=== PATIENT | female | born 1960 | race Caucasian/White ===

== ENCOUNTER 2020-02-27 11:29 | Outpatient (CLI) | payer BC ==
--- NOTE | 2020-02-27 12:34 | MMO ---
Bilateral MAMMO Bilat Screen [facility]. CLINICAL HISTORY: Patient is 59 years old and is seen for screening. The patient has no family history of breast cancer. The patient has no personal history of cancer. The patient has a history of bilateral Implants in 2006 - replaced both implants and bilateral Implants in 1991 - silicone gel. VIEWS: The views performed were: bilateral craniocaudal with tomosynthesis; bilateral mediolateral oblique with tomosynthesis; and bilateral Implant displaced with tomosynthesis. FILMS COMPARED: The present examination has been compared to prior imaging studies performed at [facility] on 10/19/1998 and 07/16/2003. This study has been interpreted with the assistance of computer-aided detection. MAMMOGRAM FINDINGS: There are scattered fibroglandular densities. There are no suspicious masses, suspicious calcifications, or new areas of architectural distortion. IMPRESSION: THERE IS NO MAMMOGRAPHIC EVIDENCE OF MALIGNANCY. A ROUTINE FOLLOW-UP MAMMOGRAM IN 1 YEAR IS RECOMMENDED. THE RESULTS OF THIS EXAM WERE SENT TO THE PATIENT. ACR BI-RADS Category 1 - Negative MAMMOGRAPHY NOTE: 1. A negative mammogram report should not delay a biopsy if a dominant of clinically suspicious mass is present. 2. Approximately 10% to 15% of breast cancers are not detected by mammography. 3. Adenosis and dense breasts may obscure an underlying neoplasm. Reported by: KATE MCKEON MD Electonically Signed: [id number]
== END 2020-02-27 11:30 | disposition home or self-care (01) ==
LOC: BICMAMMO 11:29
DX: Z12.31 Encounter for screening mammogram for malignant neoplasm of breast (principal); Z98.82 Breast implant status
CPT/HCPCS: 77063; 77067

== ENCOUNTER 2021-02-10 | Outpatient (CLI) | payer BC | END 2021-02-10 06:56 | disposition home or self-care (01) | DX: M47.26 Other spondylosis with radiculopathy, lumbar region (principal) ==

== ENCOUNTER 2021-03-22 14:05 | Outpatient (CLI) | payer BC | END 2021-03-22 14:06 | disposition home or self-care (01) | LOC: BICMAMMO 14:05 | DX: Z12.31 Encounter for screening mammogram for malignant neoplasm of breast (principal); Z98.82 Breast implant status | CPT/HCPCS: 77063; 77067 ==

== ENCOUNTER 2021-07-06 13:52 | Outpatient (CLI) | payer BC ==
[2021-07-06 14:55] LABS: Bilirubin Neg (Negative); Blood, Urine Negative (Negative); Clarity Clear (Clear); Glucose, Urine (Dipstick) Normal (Negative); Ketone, Urine Negative (Negative); Leukocyte Negative (Negative); Nitrite Negative (Negative); Protein, Urine (Dipstick) Negative (Neg-Trace); Specific Gravity, Urine 1.005 (1.002-1.036); Urobilinogen Normal mg/dL (Less than 2)
[2021-07-06 15:07] LABS: #Basophils 0.1 10x3/uL (0.0-0.2); #Eosinphils 0.2 10x3/uL (0.0-0.5); #Monocytes 0.4 10x3/uL (0.0-1.1); #Neutrophils 2.9 10x3/uL (1.5-8.4); %Basophils 1.1 % (0.0-2.0); %Eosinophils 4.4 % (0.0-6.0); %Lymphocytes 31.6 % (18.0-47.0); %Monocytes 7.5 % (0.0-10.0); %Neutrophils 55.2 % (40.0-75.0); Hemoglobin 13.8 g/dL (12.0-15.5); Mean Corpuscular HGB CONC 32.3 g/dL (32.0-36.0); Mean Corpuscular Volume 99.1 fl (81.6-98.3); Mean Platelet Volume 10.9 fl (7.4-10.4); Platelet Count 257 10x3/uL (150-450); Red Blood Cell (RBC) Count 4.31 10x6/uL (3.90-5.03); White Blood Cell (WBC) Count 5.2 10x3/uL (3.5-10.5)
[2021-07-06 15:15] LABS: INR-International Normal Ratio 0.9; Prothrombin Time 10.3 sec (9.5-12.1)
[2021-07-06 15:17] LABS: Anion Gap 12 mmol/L (10-20); BUN (Urea Nitrogen) 16 mg/dL (9.8-20.1); Calc. Creatinine Clearance 0 mL/min (70-130); Calcium 9.1 mg/dL (7.8-10.44); Carbon Dioxide 25 mmol/L (22-29); Chloride 108 mmol/L (98-107); Glucose 85 mg/dL (70-105); Potassium 4.3 mmol/L (3.5-5.1); Sodium 141 mmol/L (136-145)
[2021-07-07 13:39] LABS: SARS-CoV-2 PCR by NAA Not Detected (NotDetected)
== END 2021-07-06 13:53 | disposition home or self-care (01) ==
LOC: LABBT 13:52
PROVIDERS: ATTEND Orthopaedic Surgery
DX: Z01.818 Encounter for other preprocedural examination (principal); M17.11 Unilateral primary osteoarthritis, right knee; Z20.822 Contact with and (suspected) exposure to COVID-19
CPT/HCPCS: 80048; 81003; 85025; 85610; 87081; 93005; 93010; U0003; U0005

== ENCOUNTER 2021-07-06 14:00 | Inpatient (IN) | payer BC ==
[2021-07-05 11:23] VITALS: BMI 20.5
[2021-07-11] MEDS ORDERED: Tranexamic Acid 1,000 MG/10 ML VIAL ONE (06:07)
[2021-07-11] MEDS ORDERED: Sodium Chloride 0.9% 100 ML ONE (06:07)
[2021-07-11] MEDS ORDERED: ceFAZolin 2 GM/DEX 5% 100 ML BAG ONE ×2 (06:08→15:28)
[2021-07-11] MEDS ORDERED: Vancomycin 1 GM/200 ML BAG ONE (06:08)
[2021-07-11] MEDS ORDERED: Bupivacaine PF 0.5% 30 ML VIAL ONE (06:29)
[2021-07-11] MEDS ORDERED: Acetaminophen 325 MG TAB PO PRN (06:51)
[2021-07-11] MEDS ORDERED: Fentanyl 100 MCG/2 ML VIAL SLOW IVP PRN (06:51)
[2021-07-11] MEDS ORDERED: Promethazine HCl 25 MG/ML VIAL IM PRN ×2 (06:51→10:45)
[2021-07-11] MEDS ORDERED: HYDROcodone/Acetaminophen 10/325 mg Tablet PO PRN ×2 (06:51)
[2021-07-11] MEDS ORDERED: Ondansetron PF 4 MG/2 ML Vial IVP PRN ×2 (06:51→10:45)
[2021-07-11] MEDS ORDERED: diphenhydrAMINE 25 MG CAP PO PRN ×2 (06:51→10:45)
[2021-07-11] MEDS ORDERED: Zolpidem Tartrate 5 MG TAB PO PRN (06:51)
[2021-07-11] MEDS ORDERED: BUPRENORPHINE 15 MCG TOP SCH ×2 (07:00→09:00)
[2021-07-11] MEDS ORDERED: Fentanyl 100 MCG/2 ML VIAL ONE ×7 (07:17→18:55)
[2021-07-11] MEDS ORDERED: Ketorolac Tromethamine 30 MG/ML VIAL ONE ×2 (07:19→15:28)
[2021-07-11] MEDS ORDERED: Dexamethasone 20 MG/5 ML VIAL ONE (07:19)
[2021-07-11] MEDS ORDERED: PROPOFOL 200 MG/20 ML VIAL ONE (07:19)
[2021-07-11] MEDS ORDERED: PHENYLEPHRINE-NS 100 MCG/ML 10 ML SYRINGE ONE (07:19)
[2021-07-11] MEDS ORDERED: Lidocaine 1.5% w/Epi 1:200K 30 ML VIAL (Epid Use) ONE (07:19)
[2021-07-11] MEDS ORDERED: Ondansetron PF 4 MG/2 ML Vial ONE (07:19)
[2021-07-11] MEDS ORDERED: Ropivacaine 0.2% HCl/PF 20 ML ONE (07:26)
[2021-07-11] MEDS ORDERED: Progesterone,Micronized 100 MG CAP PO SCH (09:00)
[2021-07-11] MEDS ORDERED: [UNRECOGNIZED DRUG - MIXTURE] PO SCH (09:00)
[2021-07-11] MEDS ORDERED: Non-Formulary Item 1 EACH (Celecoxib [Celecoxib] 200 MG Capsule) PO SCH (09:00)
[2021-07-11] MEDS ORDERED: [UNRECOGNIZED DRUG - MIXTURE] PO SCH (09:00)
[2021-07-11] MEDS ORDERED: Midazolam HCl 2 mg/2 ml Vial ONE (10:15)
[2021-07-11] MEDS ORDERED: HYDROmorphone 2 MG/ML VIAL ONE (10:17)
[2021-07-11] MEDS ORDERED: diphenhydrAMINE 50 MG/ML VIAL IVP PRN (10:45)
[2021-07-11] MEDS ORDERED: diphenhydrAMINE 50 MG/ML VIAL IM PRN (10:45)
[2021-07-11] MEDS ORDERED: Promethazine HCl 25 MG SUPP PR PRN (10:45)
[2021-07-11] MEDS ORDERED: HYDROcodone/Acetaminophen 5/325 mg Tablet PO PRN (10:45)
[2021-07-11] MEDS ORDERED: Naloxone HCl 0.4 mg/ml Vial IV PRN (10:45)
[2021-07-11] MEDS ORDERED: Bupivacaine 0.25% 10 ML VIAL EPIDURAL PRN (10:45)
[2021-07-11] MEDS ORDERED: Hydrocerin (Eucerin) Cream 120 gm Jar TOP PRN (10:45)
[2021-07-11] MEDS ORDERED: traMADol HCl 50 MG TAB PO PRN ×2 (10:45)
[2021-07-11] MEDS ORDERED: Naloxone HCl 0.4 mg/ml Vial IVP PRN (10:45)
[2021-07-11] MEDS ORDERED: Ketorolac Tromethamine 30 MG/ML VIAL IVP SCH (12:00)
[2021-07-11] MEDS ORDERED: Ketorolac Tromethamine 30 MG/ML VIAL IM SCH (14:00)
[2021-07-11] MEDS ORDERED: ceFAZolin 2 GM/Dextrose 50 ML 2 GM in Premix Bag 1 BAG IVPB SCH (14:00)
[2021-07-11] MEDS ORDERED: HYDROcodone/Acetaminophen 5/325 mg Tablet ONE (15:27)
[2021-07-11] MEDS: Ketorolac Tromethamine 30 MG/ML VIAL IVP SCH ×2 (15:29→20:16)
[2021-07-11] MEDS: ceFAZolin 2 GM/Dextrose 50 ML 2 GM in Premix Bag 1 BAG IVPB SCH (15:29)
[2021-07-11] MEDS: CeleCOXIB 100 MG CAP PO SCH ×2 (18:10→20:16)
[2021-07-11] MEDS: Ferrous Gluconate 324 MG TAB PO SCH ×2 (18:10→20:16)
[2021-07-11] MEDS: Aspirin 81 mg Enteric Coated Tablet PO SCH ×2 (18:10→20:15)
[2021-07-11] MEDS: Multivitamin W/ Minerals 1 TAB PO SCH (18:10)
[2021-07-11] MEDS: Senokot S 8.6-50 MG TAB PO SCH ×2 (18:11→20:16)
[2021-07-11] MEDS: Zonisamide 100 MG CAP PO SCH ×2 (18:11→20:17)
[2021-07-11] MEDS: Sodium Chloride 0.9% 1,000 ML IV SCH ×2 (18:27)
[2021-07-11] MEDS ORDERED: Bupivacaine 0.25% HCL 30 ML VIAL ONE (18:42)
[2021-07-11] MEDS: HYDROcodone/Acetaminophen 5/325 mg Tablet PO PRN (20:14)
[2021-07-11] MEDS ORDERED: traMADol HCl 50 MG TAB PO SCH (21:00)
[2021-07-12] MEDS: HYDROcodone/Acetaminophen 5/325 mg Tablet PO PRN ×6 (00:08→19:40)
[2021-07-12] MEDS: ceFAZolin 2 GM/Dextrose 50 ML 2 GM in Premix Bag 1 BAG IVPB SCH (00:09)
[2021-07-12] MEDS ORDERED: Fentanyl 100 MCG/2 ML VIAL SLOW IVP SCH (01:45)
[2021-07-12] MEDS: Zolpidem Tartrate 5 MG TAB PO PRN ×2 (01:51→22:24)
[2021-07-12] MEDS: Fentanyl 5 mcg/Bup 0.075% Cadd 100 ML EPIDURAL SCH ×3 (01:52→21:22)
[2021-07-12] MEDS: Ketorolac Tromethamine 30 MG/ML VIAL IVP SCH ×4 (01:59→20:57)
[2021-07-12] MEDS: Sodium Chloride 0.9% 1,000 ML IV SCH ×3 (04:08→20:33)
[2021-07-12 06:43] LABS: Hemoglobin 10.6 g/dL (12.0-16.0); Mean Corpuscular HGB CONC 32.9 g/dL (32.0-36.0); Mean Corpuscular Hemoglobin 32.9 pg (27.0-31.0); Mean Platelet Volume 8.8 fL (7.4-10.4); Platelet Count 178 thou/uL (130-400); RBC Distribution Width 11.5 % (11.5-14.5); Red Blood Cell (RBC) Count 3.23 mill/uL (4.20-5.40); White Blood Cell (WBC) Count 9.2 thou/uL (4.8-10.8)
[2021-07-12] MEDS: CeleCOXIB 100 MG CAP PO SCH ×2 (07:53→20:57)
[2021-07-12] MEDS: Aspirin 81 mg Enteric Coated Tablet PO SCH ×2 (07:54→20:57)
[2021-07-12] MEDS: Ferrous Gluconate 324 MG TAB PO SCH ×2 (07:54→20:57)
[2021-07-12] MEDS: Zonisamide 100 MG CAP PO SCH ×2 (07:54→20:58)
[2021-07-12] MEDS: Multivitamin W/ Minerals 1 TAB PO SCH (07:54)
[2021-07-12] MEDS: Senokot S 8.6-50 MG TAB PO SCH ×2 (07:55→20:57)
[2021-07-12] MEDS: Baclofen 10 MG TAB PO SCH ×2 (09:18→20:57)
[2021-07-12] MEDS: Progesterone,Micronized 100 MG CAP PO SCH (20:58)
[2021-07-13] MEDS: HYDROcodone/Acetaminophen 5/325 mg Tablet PO PRN ×2 (03:17→20:05)
[2021-07-13] MEDS: Ketorolac Tromethamine 30 MG/ML VIAL IVP SCH ×2 (03:18→08:54)
[2021-07-13 05:17] LABS: Hemoglobin 9.8 g/dL (12.0-16.0); Mean Corpuscular HGB CONC 32.9 g/dL (32.0-36.0); Mean Corpuscular Hemoglobin 33.1 pg (27.0-31.0); Mean Platelet Volume 9.1 fL (7.4-10.4); Platelet Count 167 thou/uL (130-400); RBC Distribution Width 11.6 % (11.5-14.5); Red Blood Cell (RBC) Count 2.95 mill/uL (4.20-5.40); White Blood Cell (WBC) Count 9.7 thou/uL (4.8-10.8)
[2021-07-13] MEDS: Fentanyl 5 mcg/Bup 0.075% Cadd 100 ML EPIDURAL SCH ×2 (06:17→16:48)
[2021-07-13] MEDS: CeleCOXIB 100 MG CAP PO SCH ×2 (08:54→19:59)
[2021-07-13] MEDS: Ferrous Gluconate 324 MG TAB PO SCH ×2 (08:55→20:00)
[2021-07-13] MEDS: Baclofen 10 MG TAB PO SCH ×2 (08:55→19:59)
[2021-07-13] MEDS: Zonisamide 100 MG CAP PO SCH ×2 (08:55→19:59)
[2021-07-13] MEDS: Senokot S 8.6-50 MG TAB PO SCH ×2 (08:55→20:00)
[2021-07-13] MEDS: Aspirin 81 mg Enteric Coated Tablet PO SCH ×2 (08:55→19:59)
[2021-07-13] MEDS: Multivitamin W/ Minerals 1 TAB PO SCH (08:55)
[2021-07-13] MEDS: Sodium Chloride 0.9% 1,000 ML IV SCH ×3 (09:03→20:29)
[2021-07-13] MEDS: Progesterone,Micronized 100 MG CAP PO SCH (19:59)
[2021-07-14] MEDS: Aspirin 81 mg Enteric Coated Tablet PO SCH (08:13)
[2021-07-14] MEDS: HYDROcodone/Acetaminophen 5/325 mg Tablet PO PRN ×2 (08:13→11:53)
[2021-07-14] MEDS: Multivitamin W/ Minerals 1 TAB PO SCH (08:13)
[2021-07-14] MEDS: Baclofen 10 MG TAB PO SCH (08:13)
[2021-07-14] MEDS: CeleCOXIB 100 MG CAP PO SCH (08:14)
[2021-07-14] MEDS: Ferrous Gluconate 324 MG TAB PO SCH (08:14)
[2021-07-14] MEDS: Zonisamide 100 MG CAP PO SCH (08:14)
[2021-07-14] MEDS: Senokot S 8.6-50 MG TAB PO SCH (08:23)
[2021-07-14 12:39] VITALS: BP 110/74; TEMP 98.3
== END 2021-07-14 12:10 | disposition home or self-care (01) | DRG 462 ==
LOC: SURG A 07-11 05:41 → EDSTATUS 07-11 14:00 → SJJU 07-11 17:16
PROVIDERS: ADMIT Orthopaedic Surgery; ATTEND Orthopaedic Surgery
PROC: 0SRD0J9 Replacement of Left Knee Joint with Synthetic Substitute, Cemented, Open Approach (ICD-10-PCS; principal; 2021-07-11)
PROC: 0SRC0J9 Replacement of Right Knee Joint with Synthetic Substitute, Cemented, Open Approach (ICD-10-PCS; 2021-07-11)
DX: M17.12 Unilateral primary osteoarthritis, left knee (principal); M17.11 Unilateral primary osteoarthritis, right knee; M17.31 Unilateral post-traumatic osteoarthritis, right knee; Z20.822 Contact with and (suspected) exposure to COVID-19; E03.9 Hypothyroidism, unspecified; M54.9 Dorsalgia, unspecified; G25.81 Restless legs syndrome; Z90.710 Acquired absence of both cervix and uterus
CPT/HCPCS: 36415; 85027; C1713; C1776; J0690; J1100; J1170; J1885; J2001; J2250; J2405; J2704; J2795; J3010; J3370; J3490; J7050; S0020

== ENCOUNTER 2022-03-23 12:57 | Outpatient (CLI) | payer BC | END 2022-03-23 12:58 | disposition home or self-care (01) | LOC: BICMAMMO 12:57 | DX: Z12.31 Encounter for screening mammogram for malignant neoplasm of breast (principal); Z98.82 Breast implant status | CPT/HCPCS: 77063; 77067 ==

== ENCOUNTER 2023-07-11 10:51 | Outpatient (CLI) | payer OTHER | END 2023-07-11 10:52 | disposition home or self-care (01) | LOC: BICMAMMO 10:51 | PROVIDERS: ATTEND Obstetrics & Gynecology Gynecology | DX: Z12.31 Encounter for screening mammogram for malignant neoplasm of breast (principal); Z98.82 Breast implant status | CPT/HCPCS: 77063; 77067 ==

== ENCOUNTER 2023-08-03 05:49 | Day surgery (SDC) | payer OTHER ==
[2023-08-02 09:46] VITALS: BMI 21.9
[2023-08-03] MEDS ORDERED: Bupivacaine PF 0.5% 30 ML VIAL ONE (06:34)
[2023-08-03] MEDS ORDERED: Dexamethasone 4 mg/ml Vial ONE (07:08)
[2023-08-03] MEDS ORDERED: Ropivacaine 0.5% HCl/PF (150 MG/30 ML VIAL) ONE (07:09)
[2023-08-03] MEDS ORDERED: PROPOFOL 20 ML ONE (07:16)
[2023-08-03] MEDS ORDERED: Lidocaine 2% PF 5 ML VIAL ONE (07:16)
[2023-08-03] MEDS ORDERED: fentaNYL 50 mcg/mL 1 mL Vial ONE (07:18)
[2023-08-03] MEDS ORDERED: Midazolam HCl 2 mg/2 ml Vial ONE (07:18)
[2023-08-03] MEDS ORDERED: CEFAZOLIN 2 GM VIAL ONE (07:21)
[2023-08-03] MEDS ORDERED: Sodium Chloride 0.9% 100 ML ONE (07:21)
[2023-08-03] MEDS ORDERED: EPINEPHrine 1 MG/ML AMP ONE (07:50)
[2023-08-03] MEDS ORDERED: Ondansetron PF 4 MG/2 ML Vial IVP PRN ×2 (08:00→08:15)
[2023-08-03] MEDS ORDERED: Promethazine HCl 25 MG/ML VIAL IM PRN ×2 (08:00→08:15)
[2023-08-03] MEDS ORDERED: Zolpidem Tartrate 5 MG TAB PO PRN ×2 (08:00→08:15)
[2023-08-03] MEDS ORDERED: Ketorolac Tromethamine 30 MG (1 mL) VIAL ONE (08:15)
[2023-08-03] MEDS ORDERED: Ondansetron PF 4 MG/2 ML Vial ONE (08:15)
[2023-08-03] MEDS ORDERED: Ropivacaine 0.2% 550 ML 550 ML NERVE BLCK SCH (08:15)
[2023-08-03] MEDS ORDERED: traMADol HCl 50 MG TAB PO PRN ×2 (08:15)
[2023-08-03] MEDS ORDERED: HYDROcodone/Acetaminophen 10/325 mg Tablet PO PRN ×2 (08:15)
[2023-08-03] MEDS ORDERED: Dexamethasone 20 MG/5 ML VIAL ONE (08:15)
== END 2023-08-03 12:05 | disposition home or self-care (01) ==
LOC: SDC 05:49
PROVIDERS: ATTEND Orthopaedic Surgery
PROC: 0QSH04Z Reposition Left Tibia with Internal Fixation Device, Open Approach (ICD-10-PCS; principal; 2023-08-03)
PROC: 0QSK04Z Reposition Left Fibula with Internal Fixation Device, Open Approach (ICD-10-PCS; principal; 2023-08-03)
DX: S82.392A Other fracture of lower end of left tibia, initial encounter for closed fracture (principal); S82.62XA Displaced fracture of lateral malleolus of left fibula, initial encounter for closed fracture; Z96.653 Presence of artificial knee joint, bilateral; Z90.710 Acquired absence of both cervix and uterus; X50.1XXA Overexertion from prolonged static or awkward postures, initial encounter
CPT/HCPCS: A4306; C1713; C1889; J0171; J0665; J1100; J1885; J2001; J2250; J2405; J2704; J2795; J3010; J3490

== ENCOUNTER 2024-07-14 14:51 | Outpatient (CLI) | payer OTHER | END 2024-07-14 14:52 | disposition home or self-care (01) | LOC: BICMAMMO 14:51 | PROVIDERS: ATTEND Obstetrics & Gynecology Gynecology | DX: Z12.31 Encounter for screening mammogram for malignant neoplasm of breast (principal); Z98.82 Breast implant status | CPT/HCPCS: 77063; 77067 ==